=== PATIENT | female | born 2000 ===

== ENCOUNTER 2024-08-08 17:18 | Emergency (ER) | payer MEDICAID, OTHER ==
[~2024-08-08] VITALS: Ht 162.6 cm; Wt 76.8 kg
[2024-08-08 17:25] VITALS: TEMP 98.1
[2024-08-08] MEDS: MetroNIDAZOLE 250 MG TABLET PO ONE (17:55)
[2024-08-08] MEDS ORDERED: METR500 PO (18:01)
[2024-08-08 18:39] VITALS: BP 112/74; PULSE 76; RESP 18; O2SAT 98
== END 2024-08-08 18:40 | disposition home or self-care (01) ==
LOC: EMS 17:43
DX: N76.0 Acute vaginitis (principal); B96.89 Other specified bacterial agents as the cause of diseases classified elsewhere; F12.90 Cannabis use, unspecified, uncomplicated
CPT/HCPCS: 99283